=== PATIENT | female | born 1995 | race African-American/Black ===

== ENCOUNTER 2019-02-07 13:18 | Inpatient (IN) | payer OTHER ==
[2019-02-07 14:05] VITALS: BMI 39.2
--- NOTE | 2019-02-07 15:18 | HP ---
CIWA Score Nausea/Vomitin-No Nausea/No Vomiting Muscle Tremors: None Anxiety: 0-No Anxiety, at Ease Agitation: 0-Normal Activity Paroxysmal Sweats: No Perspiration Orientation: 0-Oriented Tacttile Disturbances: 0-None Auditory Disturbances: 0-None Visual Disturbances: 0-None Headache: 0-None Present CIWA-Ar Total Score: 0 - Admission Criteria OASAS Guidelines: Admission for Medically Managed Detox: Requires at least one of the followin. CIWA greater than 12 2. Seizures within the past 24 hours 3. Delirium tremens within the past 24 hours 4. Hallucinations within the past 24 hours 5. Acute intervention needed for co occurring medical disorder 6. Acute intervention needed for co occurring psychiatric disorder 7. Severe withdrawal that cannot be handled at a lower level of care (continued vomiting, continued diarrhea, abnormal vital signs) requiring intravenous medication and/or fluids 8. Admission [facility] Chief Complaint: rehab from alcohol and marijuana Allergies/Adverse Reactions: Allergies Allergy/AdvReac Type Severity Reaction Status Date / Time NSAIDS (Non-Steroidal Allergy Verified 02/07/19 13:56 Anti-Inflamma History of Present Illness: 23 y/o F with PMH asthma (never intubated), bipolar disorder who presents for rehab from alcohol and marijuana. Per pt, she last used yesterday. Drank 3-4 shots of Bacardi rum and had 1 beer. Drinks this amount daily, however can drink up to 1 bottle of vodka "depending on how stressed she is." Started drinking when she was 13 y/o, however has drank daily over the last month. Has been stressed recently over custody of her child. Usually drinks when she smokes marijuana. Has smoked marijuana since she was 13 y/o ; 6-7 blunts/day. States that it makes her feel sleepy, so she will take a nap and continue to smoke after. Had past suicide attempt 4-5 yrs ago. used to cut UE was referred here by an outpatient care counseling center previously was at [facility] 6-9 mo residential living 1 yr ago first time at [facility] PMH: as above PsxH: denies meds: abilify 10mg qd, remeron 15mg qd allergies: Motrin/nsaid's - causes angioedema FH: denies SH: lives in an apt. used to work for [employer]. pays for alcohol and marijuana using public assistance and her friends smokes 1 ppd q2-3 days. alcohol and marijuana use as above. - Ebola screening Have you traveled outside of the country in the last 21 days: No Have you had contact with anyone from an Ebola affected area: No Have you been sick,other than usual withdrawal symptoms: No Do you have a fever: No - Review of Systems Constitutional: No Symptoms Reported EENT: reports: No Symptoms Reported Respiratory: reports: No Symptoms reported Cardiac: reports: No Symptoms Reported GI: reports: No Symptoms Reported : reports: No Symptoms Reported Musculoskeletal: reports: No Symptoms Reported Integumentary: reports: No Symptoms Reported Neuro: reports: No Symptoms reported Endocrine: reports: No Symptoms Reported Hematology: reports: No Symptoms Reported Psychiatric: reports: Orientated x3 Patient History - Patient Medical History Hx Asthma: Yes Hx Bipolar Disorder: Yes - Patient Surgical History Past Surgical History: No - PPD History Documented Results: Negative w/o proof PPD to be Administered?: Yes - Reproductive History Patient is a Female of Child Bearing Age (11 -55 yrs old): Yes Last Menstrual Period: 01/20/18 (was on depo shot ) Patient : No - Smoking Cessation Smoking history: Current every day smoker Aproximately how many cigarettes per day: 7 Hx Chewing Tobacco Use: No Initiated information on smoking cessation: Yes 'Breaking Loose' booklet given: 02/07/19 - Substances abused Other Substance route: Oral Frequency: Daily Amount used: 2 PINTS OF VODKA, 3 CANS OF BEER (12 OUNCES) Age of first use: 13 Date of last use: 02/05/19 Marijuana/Hashish Substance route: Oral Frequency: Daily Amount used: 6-7 blunts Age of first use: 13 Date of last use: 02/07/19 Family Disease History - Family Disease History Family History: Denies Admission Physical Exam [facility] - Vital Signs Vital Signs: Vital Signs - 24 hr 02/07/19 13:58 Temperature 98.1 F Pulse Rate 64 Respiratory 20 Rate Blood Pressure 111/73 - Physical General Appearance: Yes: Within Normal Limits HEENTM: Yes: Within Normal Limits Respiratory: Yes: Lungs Clear Neck: Yes: Within Normal Limits, Supple Breast: Yes: Breast Exam Deferred Cardiology: Yes: Regular Rate, S1, S2 Abdominal: Yes: Within Normal Limits Genitourinary: Yes: Within Normal Limits Back: Yes: Normal Inspection Musculoskeletal: Yes: full range of Motion Extremities: Yes: Within Normal Limits 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 NML intact Integumentary: Yes: Dry, Warm - Diagnostic (1) Asthma Current Visit: Yes Status: Chronic Qualifiers: Asthma complication type: uncomplicated (2) Bipolar 1 disorder Current Visit: Yes Status: Chronic (3) Alcohol use disorder Current Visit: Yes Status: Chronic (4) Marijuana dependence Current Visit: Yes Status: Chronic Cleared for Admission [facility] - Detox or Rehab Detox Regimen/Protocol: Not Applicable Claeared for Rehab Admission: Yes Breathalyzer - Breathalyzer Breathalyzer: 0 Urine Drug Screen - Test Device Lot number: [id number] Expiration date: 10/31/20 - Control Is test valid?: Yes - Results Drug screen NEGATIVE: No Urine drug screen results: THC-Marijuana Inpatient Rehab Admission - Rehab Decision to Admit Inpatient rehab admission?: Yes - Initial Determination Are CD services needed?: Yes Free of communicable disease: Yes Not in need of hospitalization: Yes - Rehab Admission Criteria Previous failed treatment: Yes Poor recovery environment: Yes Comorbidities: Yes Lacks judgement: No Patient is meeting Inpatient Rehab admission criteria:: Yes
[2019-02-07] MEDS ORDERED: MENTHOL/PHENOL 1 EACH UD MM PRN (15:28)
[2019-02-07] MEDS ORDERED: ACETAMINOPHEN 325 MG TABLET (FP) PO PRN (15:28)
[2019-02-07] MEDS ORDERED: MAG HYDROX/AL HYDROX/SIMETH 30 ML UNIT-DOSE CUP PO PRN (15:28)
[2019-02-07] MEDS ORDERED: MAGNESIUM HYDROX 2400MG/30ML ORAL SUSPENSION 30 ML CUP PO PRN (15:28)
[2019-02-07] MEDS ORDERED: guaiFENesin 200 MG/10 ML 10 ML UNIT-DOSE CUPS PO PRN (15:28)
[2019-02-07] MEDS ORDERED: P-EPHED 60MG/TRIPROLIDI 2.5MG TABLET PO PRN (15:28)
[2019-02-07] MEDS ORDERED: LOPERAMIDE HCL 2 MG CAPSULE PO PRN (15:28)
--- NOTE | 2019-02-07 15:35 | PN ---
Teaching Attending Note Name of Resident: Letty Steven ATTENDING PHYSICIAN STATEMENT I saw and evaluated the patient. I reviewed the resident's note and discussed the case with the resident. I agree with the resident's findings and plan as documented. SUBJECTIVE: this 23 years old female with alcohol and marijuana dependence,seeking rehab OBJECTIVE: Vital Signs Temperature 98.1 F 02/07/19 13:58 Pulse Rate 64 02/07/19 13:58 Respiratory Rate 20 02/07/19 13:58 Blood Pressure 111/73 02/07/19 13:58 O2 Sat by Pulse Oximetry (%) ASSESSMENT AND PLAN: this 23 years old female with alcohol and marijuana dependence,needed rehab, bipolar disorder, for rehab
[2019-02-07 16:42] LABS: HEMATOCRIT 40.6 % (32.4-45.2); HEMOGLOBIN 13.5 GM/dL (10.7-15.3); MCH 31.8 pg (25.7-33.7); MCHC 33.3 g/dl (32.0-36.0); MEAN CELL VOLUME 95.4 fl (80-96); MEAN PLT VOLUME 8.2 fl (7.5-11.1); PLATELET COUNT 245 K/MM3 (134-434); RBC 4.25 M/mm3 (3.60-5.2); WHITE BLOOD COUNT 6.2 K/mm3 (4.0-10.0)
[2019-02-07 16:51] LABS: ALBUMIN 3.5 g/dl (3.4-5.0); BILIRUBIN,TOTAL 0.7 mg/dL (0.2-1); BLOOD UREA NITROGEN 8.4 mg/dL (7-18); CALCIUM 9.1 mg/dL (8.5-10.1); CREATININE 0.8 mg/dL (0.55-1.3); POTASSIUM 3.9 mmol/L (3.5-5.1); TOT PROT 7.1 g/dl (6.4-8.2)
[2019-02-07] MEDS: NICOTINE POLACRILEX 2 MG GUM BUC PRN (18:38)
[2019-02-07] MEDS: NICOTINE 14 MG/24 HOURS TOPICAL PATCH TD SCH (18:38)
[2019-02-07] MEDS: THIAMINE HCL 100 MG TABLET (FP) PO SCH (21:48)
[2019-02-07] MEDS: MELATONIN 5 MG TABLETS PO PRN (21:48)
--- NOTE | 2019-02-07 23:31 | EKG ---
Test Reason : Blood Pressure : / mmHG Vent. Rate : 055 BPM Atrial Rate : 055 BPM P-R Int : 132 ms QRS Dur : 076 ms QT Int : 450 ms P-R-T Axes : 043 047 031 degrees QTc Int : 430 ms SINUS BRADYCARDIA OTHERWISE NORMAL ECG NO PREVIOUS ECGS AVAILABLE Confirmed by AL BAKER MD ([id number]) on 02/07/2019 11:30:51 PM Referred By: Confirmed By:AL BAKER MD
--- NOTE | 2019-02-08 08:23 | CONSULT ---
[facility] Psychiatric Consult - Data Date of interview: 02/08/19 Admission source: [facility] Identifying data: Ms Cardozo is a 23 years old single Black female, mother of a 6 years old daughter, unemployed receiving public assistance, domiciledc seeking rehab treatment for alcohol and cannabis Substance Abuse History: Reports history of alcohol and marijuana use. Refer to addiction counselor's summary for further information Medical History: Significant for bronchial asthma. Smokes 7 cigarettes daily Psychiatric History: Reports that her firt psychiatric contact was at age 14-15 while in foster care. Reports that she was diagnosed with depression and oppositional defiant disorder and started on Prozac. Told public relations writer that she took medication for only a few months. Reports 4-5 previous psychiatric admissions to [facility] and most recently 4 years ago to [facility] for suicidal attempt by overdosing on pills. Denies adherence to OPD care and medications. At present, she reports being prescribed Abilify 10 mg/ day and Remeron 15 mg/hs by a staff physician at her program([facility]). She was confronted with entry by [facility] staff that as suicidal attempt, she cut her upper extremity 4-5 years ago. By committing that act, she denies that it was a suicidal attempt but admits that she is a cutter. At present, denies depressive symptoms, S/H ideations. However, reports sleeping poorly Physical/Sexual Abuse/Trauma History: Denies. Reports DVV relationship with an ex partner. No service Additional Comment: Denies criminal history Mental Status Exam - Mental Status Exam Alert and Oriented to: Time, Place, Person Cognitive Function: Fair Patient Appearance: Well Groomed Mood: Hopeful, Euthymic Patient Behavior: Cooperative Speech Pattern: Clear Voice Loudness: Normal Thought Process: Intact, Goal Oriented Hallucinations: Denies Suicidal Ideation: Denies Homicidal Ideation: Denies Insight/Judgement: Fair Sleep: Poorly Appetite: Good Muscle strength/Tone: Normal Gait/Station: Normal Psychiatric Findings - Problem List ([place] 1, 2,3) (1) Mood disorder Current Visit: Yes Status: Chronic (2) Substance-induced sleep disorder Current Visit: Yes Status: Acute (3) Alcohol dependence Current Visit: Yes Status: Acute (4) Cannabis dependence Current Visit: Yes Status: Acute (5) Nicotine dependence Current Visit: Yes Status: Chronic (6) Asthma Current Visit: Yes Status: Chronic Qualifiers: Asthma complication type: uncomplicated - Initial Treatment Plan Initial Treatment Plan: 1) Continue Abilify 10 mg po daily and Remeron 15 mg po HS. 2) Continue inpatient rehabilitation
[2019-02-08] MEDS: NICOTINE 14 MG/24 HOURS TOPICAL PATCH TD SCH (10:26)
[2019-02-08] MEDS: NICOTINE POLACRILEX 2 MG GUM BUC PRN (10:26)
[2019-02-08] MEDS: ARIPiprazole 10 MG TABLET PO SCH (10:27)
[2019-02-08] MEDS: PRENATAL VITAMINS W/ FOLIC ACID TABLET (FP) PO SCH (10:27)
[2019-02-08] MEDS: THIAMINE HCL 100 MG TABLET (FP) PO SCH (21:35)
[2019-02-08] MEDS: MIRTAZAPINE 15 MG TABLET (FP) PO SCH (21:36)
[2019-02-08] MEDS: MELATONIN 5 MG TABLETS PO PRN (21:37)
[2019-02-09] MEDS ORDERED: COLLOIDAL OATMEAL 1 BAR EACH TP PRN (08:31)
[2019-02-09] MEDS: NICOTINE 14 MG/24 HOURS TOPICAL PATCH TD SCH (10:02)
[2019-02-09] MEDS: PRENATAL VITAMINS W/ FOLIC ACID TABLET (FP) PO SCH (10:02)
[2019-02-09] MEDS: ARIPiprazole 10 MG TABLET PO SCH (10:02)
[2019-02-09] MEDS: NICOTINE POLACRILEX 2 MG GUM BUC PRN ×2 (10:03→17:29)
[2019-02-09] MEDS: THIAMINE HCL 100 MG TABLET (FP) PO SCH (21:24)
[2019-02-09] MEDS: MIRTAZAPINE 15 MG TABLET (FP) PO SCH (21:24)
[2019-02-09] MEDS: MELATONIN 5 MG TABLETS PO PRN (21:24)
[2019-02-10] MEDS: PRENATAL VITAMINS W/ FOLIC ACID TABLET (FP) PO SCH (09:52)
[2019-02-10] MEDS: ARIPiprazole 10 MG TABLET PO SCH (09:52)
[2019-02-10] MEDS: NICOTINE POLACRILEX 2 MG GUM BUC PRN ×2 (09:53→13:01)
[2019-02-10] MEDS: NICOTINE 14 MG/24 HOURS TOPICAL PATCH TD SCH (09:53)
[2019-02-10 17:31] LABS: PH,URINE 8.5 (5.0-8.0); URINE APPEARANCE CLEAR; URINE BILIRUBIN NEGATIVE (NEGATIVE); URINE COLOR YELLOW; URINE GLUCOSE (UA) NEGATIVE (NEGATIVE); URINE KETONE NEGATIVE (NEGATIVE); URINE LEUK ESTERASE NEGATIVE (NEGATIVE); URINE NITRITE NEGATIVE (NEGATIVE); URINE PROTEIN NEGATIVE (NEGATIVE); URINE UROBILINOGEN 0.2 mg/dL (0.2-1.0)
[2019-02-10] MEDS: MELATONIN 5 MG TABLETS PO PRN (21:37)
[2019-02-10] MEDS: MIRTAZAPINE 15 MG TABLET (FP) PO SCH (21:37)
[2019-02-10] MEDS: THIAMINE HCL 100 MG TABLET (FP) PO SCH (21:37)
[2019-02-11 07:13] VITALS: BP 109/72; PULSE 58; TEMP 98
[2019-02-11] MEDS: PRENATAL VITAMINS W/ FOLIC ACID TABLET (FP) PO SCH (09:35)
[2019-02-11] MEDS: NICOTINE 14 MG/24 HOURS TOPICAL PATCH TD SCH (09:35)
[2019-02-11] MEDS: NICOTINE POLACRILEX 2 MG GUM BUC PRN (09:36)
[2019-02-11] MEDS: ARIPiprazole 10 MG TABLET PO SCH (09:36)
--- NOTE | 2019-02-11 13:11 | PN ---
[facility] Progress Note Note: informed by nurse that patient left [facility] ,did not want to wait
--- NOTE | 2019-02-11 13:13 | PN ---
[facility] Progress Note Note: this is the discharge note for rehab date of admission 02/07/19 date of discharge 02/11/19 diagnosis alcohol dependence cannabis dependence Vital Signs Temperature 98.0 F 02/11/19 07:12 Pulse Rate 58 L 02/11/19 07:12 Respiratory Rate 16 02/11/19 07:12 Blood Pressure 109/72 02/11/19 07:12 O2 Sat by Pulse Oximetry (%) Laboratory Last Values WBC 6.2 K/mm3 (4.0-10.0) 02/07/19 15:30 RBC 4.25 M/mm3 (3.60-5.2) 02/07/19 15:30 Hgb 13.5 GM/dL (10.7-15.3) 02/07/19 15:30 Hct 40.6 % (32.4-45.2) 02/07/19 15:30 MCV 95.4 fl (80-96) 02/07/19 15:30 MCH 31.8 pg (25.7-33.7) 02/07/19 15:30 MCHC 33.3 g/dl (32.0-36.0) 02/07/19 15:30 RDW 14.0 % (11.6-15.6) 02/07/19 15:30 Plt Count 245 K/MM3 (134-434) 02/07/19 15:30 MPV 8.2 fl (7.5-11.1) 02/07/19 15:30 Sodium 140 mmol/L (136-145) 02/07/19 15:30 Potassium 3.9 mmol/L (3.5-5.1) 02/07/19 15:30 Chloride 105 mmol/L (98-107) 02/07/19 15:30 Carbon Dioxide 25 mmol/L (21-32) 02/07/19 15:30 Anion Gap 9 MMOL/L (8-16) 02/07/19 15:30 BUN 8.4 mg/dL (7-18) 02/07/19 15:30 Creatinine 0.8 mg/dL (0.55-1.3) 02/07/19 15:30 Est GFR (CKD-EPI)AfAm 118.76 02/07/19 15:30 Est GFR (CKD-EPI)NonAf 102.47 02/07/19 15:30 Random Glucose 109 mg/dL (74-106) H 02/07/19 15:30 Calcium 9.1 mg/dL (8.5-10.1) 02/07/19 15:30 Total Bilirubin 0.7 mg/dL (0.2-1) 02/07/19 15:30 AST 9 U/L (15-37) L 02/07/19 15:30 ALT 13 U/L (13-61) 02/07/19 15:30 Alkaline Phosphatase 62 U/L (45-117) 02/07/19 15:30 Total Protein 7.1 g/dl (6.4-8.2) 02/07/19 15:30 Albumin 3.5 g/dl (3.4-5.0) 02/07/19 15:30 Urine Color Yellow 02/10/19 Unknown Urine Appearance Clear 02/10/19 Unknown Urine pH 8.5 (5.0-8.0) H 02/10/19 Unknown Ur Specific [place] 1.014 (1.010-1.035) 02/10/19 Unknown Urine Protein Negative (NEGATIVE) 02/10/19 Unknown Urine Glucose (UA) Negative (NEGATIVE) 02/10/19 Unknown Urine Ketones Negative (NEGATIVE) 02/10/19 Unknown Urine Blood Negative (NEGATIVE) 02/10/19 Unknown Urine Nitrite Negative (NEGATIVE) 02/10/19 Unknown Urine Bilirubin Negative (NEGATIVE) 02/10/19 Unknown Urine Urobilinogen 0.2 mg/dL (0.2-1.0) 02/10/19 Unknown Ur Leukocyte Esterase Negative (NEGATIVE) 02/10/19 Unknown RPR Titer Nonreactive (NONREACTIVE) 02/07/19 15:30 HIV 1&2 Ag/Ab, 4th Gen Non reactive (Non Reactive) 02/07/19 15:00 HIV 1&2 Antibody Screen Cancelled 02/07/19 15:30 HIV P24 Antigen Cancelled 02/07/19 15:30 TB Test (QFT) Nil 0.07 IU/mL (.) 02/07/19 15:30 TB Test (QFT) Mitogen >10.00 IU/mL (.) 02/07/19 15:30 TB Test (QFT) Antigen 0.08 IU/mL (.) 02/07/19 15:30 TB Test (QFT) Negative (Negative) 02/07/19 15:30 TB Positive Criteria (.) 02/07/19 15:30 patient left [facility]
== END 2019-02-11 12:58 | disposition home or self-care (01) | DRG 772 ==
LOC: YASAS 13:18 → Y3E 15:29
PROVIDERS: ADMIT Neuromusculoskeletal Medicine & OMM; ATTEND Neuromusculoskeletal Medicine & OMM
PROC: HZ42ZZZ Group Counseling for Substance Abuse Treatment, Cognitive-Behavioral (ICD-10-PCS; principal; 2019-02-07)
DX: F10.20 Alcohol dependence, uncomplicated (principal); F12.20 Cannabis dependence, uncomplicated; F17.210 Nicotine dependence, cigarettes, uncomplicated; F19.282 Other psychoactive substance dependence with psychoactive substance-induced sleep disorder; F39 Unspecified mood [affective] disorder; F31.89 Other bipolar disorder; J45.909 Unspecified asthma, uncomplicated
CPT/HCPCS: 36415; 80053; 81003; 81025; 85027; 86480; 86593; 87389; 93005; 93010